=== PATIENT | female | born 1970 | race Caucasian/White ===

== ENCOUNTER 2018-08-14 17:16 | Emergency (ER) | payer MEDICAID ==
[~2018-08-14] VITALS: Ht 177.8 cm; Wt 90.7 kg
[~2018-08-14 17:16] MED LIST: ATEN100T PO; IBUP-784 PO; TRAM50TA2 PO; [UNRECOGNIZED DRUG - OTHER] PO
[2018-08-14] MEDS ORDERED: GABAPENTIN 300 MG CAPSULE ONE (18:14)
[2018-08-14] MEDS ORDERED: GABAPENTIN 300 MG CAPSULE PO ONE (18:15)
--- NOTE | 2018-08-14 18:51 | NUR ---
PATIENT EXPRESSED AGGRESSIVE CONDUCT. HAD TO CALL SECURITY. CHARLIE WITNESS
[2018-08-14] MEDS ORDERED: ONDANSETRON 4 MG/2 ML VIAL IM ONE (19:00)
[2018-08-14] MEDS ORDERED: HYDROMORPHONE 1 MG/1 ML DISP.SYRIN ONE (19:00)
[2018-08-14] MEDS ORDERED: HYDROMORPHONE 1 MG/1 ML DISP.SYRIN IM ONE (19:00)
[2018-08-14] MEDS ORDERED: ONDANSETRON 4 MG/2 ML VIAL ONE (19:00)
--- NOTE | 2018-08-14 19:07 | NUR ---
PT C/O PAIN , MD INFORMED AND PAIN MEDICATION GIVEN. FULL REPORT GIVEN TO CHETNA ALCOCER
--- NOTE | 2018-08-14 19:39 | NUR ---
Patient eloped from facility. ER physician notified.
== END 2018-08-14 19:44 | disposition left against medical advice (07) ==
LOC: ER 17:18
DX: S06.9X9A Unspecified intracranial injury with loss of consciousness of unspecified duration, initial encounter (principal); M79.604 Pain in right leg; M79.605 Pain in left leg; M25.561 Pain in right knee; B95.8 Unspecified staphylococcus as the cause of diseases classified elsewhere; I10 Essential (primary) hypertension; F17.200 Nicotine dependence, unspecified, uncomplicated; Z88.0 Allergy status to penicillin; Z88.1 Allergy status to other antibiotic agents; Z88.8 Allergy status to other drugs, medicaments and biological substances; Z79.1 Long term (current) use of non-steroidal anti-inflammatories (NSAID); Z79.899 Other long term (current) drug therapy; W10.9XXA Fall (on) (from) unspecified stairs and steps, initial encounter; Y93.89 Activity, other specified; Y92.89 Other specified places as the place of occurrence of the external cause; Y99.8 Other external cause status
CPT/HCPCS: 29505; 70450; 72125; 73551; 73564 ×2; 73590 ×2; 96372 ×2; 99284; J1170; J2405; A4663